=== PATIENT | female | born 1990 | race Caucasian/White ===

== ENCOUNTER 2016-11-24 16:54 | Outpatient (CLI) | payer OTHER ==
[~2016-11-24] VITALS: Ht 154.9 cm; Wt 62.1 kg
== END 2016-11-24 20:37 | disposition home or self-care (01) ==
LOC: GENOP 16:54
DX: O23.42 Unspecified infection of urinary tract in pregnancy, second trimester (principal); Z3A.25 25 weeks gestation of pregnancy
CPT/HCPCS: 81001; 87077; 87086; 87186; G0463; J0696

== ENCOUNTER → 2016-12-17 | Outpatient (CLI) | payer OTHER | LOC: US 13:00 | DX: O23.42 Unspecified infection of urinary tract in pregnancy, second trimester (principal); N39.0 Urinary tract infection, site not specified; Z3A.00 Weeks of gestation of pregnancy not specified ==

== ENCOUNTER 2020-08-31 18:28 | Emergency (ER) | payer OTHER ==
[2020-08-31] MEDS ORDERED: CEPHALEXIN500 MG PO (19:51)
[2020-08-31] MEDS ORDERED: PYRIDIUM200 MG PO (19:52)
== END 2020-08-31 19:58 | disposition home or self-care (01) ==
LOC: ER1 18:28
DX: N30.01 Acute cystitis with hematuria (principal); K21.9 Gastro-esophageal reflux disease without esophagitis; F17.210 Nicotine dependence, cigarettes, uncomplicated; Z88.5 Allergy status to narcotic agent
CPT/HCPCS: 81001; 84703; 99283

== ENCOUNTER 2020-10-01 14:33 | Emergency (ER) | payer OTHER ==
[~2020-10-01 14:33] MED LIST: CEPHALEXIN500 MG PO; PYRIDIUM200 MG PO
[2020-10-01] MEDS ORDERED: IBUPROFEN600 MG PO (17:25)
== END 2020-10-01 17:35 | disposition home or self-care (01) ==
LOC: ER1 14:33
DX: S93.401A Sprain of unspecified ligament of right ankle, initial encounter (principal); S93.504A Unspecified sprain of right lesser toe(s), initial encounter; S80.02XA Contusion of left knee, initial encounter; S80.01XA Contusion of right knee, initial encounter; Z88.5 Allergy status to narcotic agent; Z79.01 Long term (current) use of anticoagulants; W10.9XXA Fall (on) (from) unspecified stairs and steps, initial encounter; Y92.009 Unspecified place in unspecified non-institutional (private) residence as the place of occurrence of the external cause; F17.210 Nicotine dependence, cigarettes, uncomplicated
CPT/HCPCS: 73562; 73610; 73630; 99283